=== PATIENT | female | born 1940 | race Asian ===

== ENCOUNTER → 2022-11-23 | Outpatient (CLI) | payer MEDICARE, OTHER ==
[~2022-11-23] VITALS: Ht 152.4 cm; Wt 49.0 kg
[~2022-11-23] MED LIST: ASPI-556 PO; ATEN-73 PO; ATOR20TA86 PO; EMPA10TA3 PO; SENN-338 PO
[2022-11-23 10:37] VITALS: BP 138/78
== END | disposition home or self-care (01) ==
LOC: SRCNTR 10:17
PROVIDERS: ATTEND Internal Medicine
DX: I27.20 Pulmonary hypertension, unspecified (principal); I10 Essential (primary) hypertension; R73.03 Prediabetes; E78.5 Hyperlipidemia, unspecified
CPT/HCPCS: G0463; Z7500

== ENCOUNTER → 2024-11-07 | Outpatient (CLI) | payer MEDICARE, OTHER ==
[~2024-11-07] VITALS: Ht 154.9 cm; Wt 48.5 kg
[~2024-11-07] MED LIST changes: -ASPI-556 PO; +ATOR20TA PO; -ATOR20TA86 PO; -SENN-338 PO; +SENN-395 PO
[2024-11-07 09:44] VITALS: BP 140/77; PULSE 64; RESP 18; TEMP 97.9; O2SAT 99
== END | disposition home or self-care (01) ==
LOC: SRCNTR 09:32
PROVIDERS: ATTEND Internal Medicine
DX: I27.20 Pulmonary hypertension, unspecified (principal); Z79.899 Other long term (current) drug therapy; Z87.01 Personal history of pneumonia (recurrent); Z88.0 Allergy status to penicillin
CPT/HCPCS: G0463; Z7500